=== PATIENT | female | born 1965 | race American Indian/Alaskan Native ===

== ENCOUNTER 2017-09-13 09:16 | Outpatient (CLI) | payer BC ==
--- NOTE | 2017-09-13 10:33 | Mammography Report ---
BILATERAL MAMMOGRAM with CAD: HISTORY: Cancer screening. Comparison study is dated September 13, 2016. FINDINGS: The breast tissue is heterogeneously dense, which could obscure detection of small masses (approximately 50%-75% glandular). No mass, distortion, suspicious calcification, or skin change is seen. IMPRESSION: Negative mammogram. There is no mammographic evidence of malignancy. RECOMMENDATION: Follow-up per ACS guidelines. BI-RADS CATEGORY: 1 = Negative ACR BI-RADS MAMMOGRAPHIC CODES: 0 = Needs additional imaging evaluation; 1 = Negative; 2 = Benign; 3 = Probably benign; 4 = Suspicious; 5 = Malignant; 6 = Known biopsy-proven malignancy COMMENT: 1. Dense breast tissue, i.e., adenosis, fibrocystic changes, etc., may obscure an underlying neoplasm. 2. Approximately 10% of cancers are not detected with mammography. 3. A negative mammography report should not delay biopsy if a clinically suspicious mass is present. COMMENT: Patient follow-up letters are generated in [employer].
== END 2017-09-13 09:17 | disposition home or self-care (01) ==
LOC: SPVWC 09:16
PROVIDERS: ATTEND Family Medicine
DX: Z12.31 Encounter for screening mammogram for malignant neoplasm of breast (principal)
CPT/HCPCS: 77067; G0202

== ENCOUNTER 2020-03-05 07:41 | Outpatient (CLI) | payer BC ==
[2020-03-05 08:28] LABS: Blood Urea Nitrogen 13 mg/dL (7-17)
--- NOTE | 2020-03-05 10:46 | Cat Scan Report ---
CT ABDOMEN AND PELVIS WITH CONTRAST HISTORY: Abdominal pain COMPARISON: None. TECHNIQUE: Axial CT images were obtained through the abdomen and pelvis after 100 cc of Omnipaque 300 intravenously. Sagittal and coronal reformatted images. All CT scans at this location are performed using CT dose reduction for ALARA by means of automated exposure control. FINDINGS: CT ABDOMEN: Lung Bases: Clear. Liver: No significant abnormality. Biliary: No significant abnormality. Spleen: No significant abnormality. Unenlarged. Pancreas: No significant abnormality. Adrenals: No significant abnormality. Kidneys: No significant abnormality. Lymphatics: No lymphadenopathy. Vasculature: No significant abnormality. Bowel/Peritoneum: No significant abnormality. No free air. No free fluid. Normal appendix. CT PELVIS: : There are multiple small uterine fibroids. The adnexa, bladder and distal ureters are unremarkabl e. Osseous Structures: No significant abnormality. Additional Findings: Small umbilical hernia containing fat. IMPRESSION: Mild uterine fibroid disease. Small umbilical hernia containing fat. No acute process is identified in the abdomen or pelvis. Signer Name: Kentrell Robison Jr, MD Signed: 03/05/2020 10:41 AM Workstation Name: [id number]
--- NOTE | 2020-03-05 11:22 | Magnetic Resonance Report ---
MRI RIGHT FEMUR WITHOUT CONTRAST INDICATION / CLINICAL INFORMATION: MAIN. Right hip pain and swelling COMPARISON: Right hip radiograph from 04/02/2012 TECHNIQUE: Multiplanar, multisequence MR images were obtained. FINDINGS: BONES: No significant bone marrow edema. No fracture. No osseous lesion. MUSCLES: No significant abnormality. SUBCUTANEOUS SOFT TISSUES: Superficial varicose veins posteriorly in the distal thigh. VISUALIZED JOINTS: Small bilateral knee joint effusions. ADDITIONAL FINDINGS: Cutaneous marker over the distal lateral thigh is noted. No lesion is identified in this region. IMPRESSION: 1. No significant abnormality in the indicated area of interest. 2. Superficial venous varices posteriorly in the distal thigh. Report dictated by: Isaak Tirado MD Report dictated on: 03/05/2020 9:30 AM I have reviewed the images, agree with this report, and edited this report as needed. Signer Name: Sami Osuna MD FACR Signed: 03/05/2020 11:17 AM Workstation Name: [id number]
== END 2020-03-05 07:42 | disposition home or self-care (01) ==
LOC: MRI 07:41
PROVIDERS: ATTEND Family Medicine
DX: D25.9 Leiomyoma of uterus, unspecified (principal); K42.9 Umbilical hernia without obstruction or gangrene; M25.462 Effusion, left knee; M25.461 Effusion, right knee
CPT/HCPCS: 36415; 73718; 74177; 82565; 84520; Q9967

== ENCOUNTER 2020-09-24 10:30 | Outpatient (CLI) | payer BC ==
--- NOTE | 2020-09-24 14:01 | Mammography Report ---
DIGITAL SCREENING MAMMOGRAM WITH CAD, 09/24/2020 CLINICAL INFORMATION / INDICATION: Routine screening mammography. TECHNIQUE: Digital bilateral 2D mammography was obtained in the craniocaudal and mediolateral obliqu e projections. This examination was interpreted with the benefit of Computer-Aided Detection analysis . COMPARISON: 09/13/2016 FINDINGS: Breast Density: There are scattered areas of fibroglandular density. No dominant mass, suspicious calcifications, or architectural distortion in either breast. No interval change. IMPRESSION: No mammographic evidence of malignancy. Follow up recommendation: Routine yearly BI-RADS Category 1: Negative. A "normal" or negative report should not discourage follow up or biopsy of a clinically significant f inding. A written summary of these findings will be mailed to the patient. The patient will be entered into a mammography reporting system which will generate a reminder letter for the patient's next appointmen t at the appropriate interval. The [employer] recommends yearly mammograms starting at age 40 and continuing as l laina as a woman is in good health. Breast MRI is recommended for women with an approximate 20-25% or greater lifetime risk of breast cancer, including women with a strong family history of breast or ova marga cancer or who have been treated for Hodgkin's disease. Signer Name: Soraida James MD Signed: 09/24/2020 1:57 PM Workstation Name: [email or web address]
== END 2020-09-24 10:31 | disposition home or self-care (01) ==
LOC: SPVWC 10:30
PROVIDERS: ATTEND Family Medicine
DX: Z12.31 Encounter for screening mammogram for malignant neoplasm of breast (principal)
CPT/HCPCS: 77067

== ENCOUNTER 2021-05-06 09:04 | Outpatient (CLI) | payer BC ==
--- NOTE | 2021-05-06 09:46 | Mammography Report ---
DIGITAL DIAGNOSTIC MAMMOGRAM WITH CAD , 05/06/2021 CLINICAL INFORMATION / INDICATION: The patient reports generalized bilateral breast pain for 4 months . TECHNIQUE: Digital bilateral mammographic imaging was performed. This examination was interpreted with the benefit of Computer-aided Detection analysis. COMPARISON: 09/24/2020, 09/13/2017 FINDINGS: Breast Density: There are scattered areas of fibroglandular density. No dominant mass, suspicious calcifications or architectural distortion in either breast. IMPRESSION: No mammographic evidence of malignancy. No focal abnormality is seen to account for the p atient's bilateral breast pain. Therefore, clinical correlation is recommended. Follow up recommendation: Routine yearly BI-RADS Category 1: Negative. A "normal" or negative report should not discourage follow up or biopsy of a clinically significant f inding. A written summary of these findings will be mailed to the patient. The patient will be entered into a mammography reporting system which will generate a reminder letter for the patient's next appointmen t at the appropriate interval. According to the [employer], yearly mammograms are recommended starting at age 40 and continuing as long as a woman is in good health. Breast MRI is recommended for women with an [place] roximately 20-25% or greater lifetime risk of breast cancer, including women with a strong family his tory of breast or ovarian cancer and women who have been treated for Hodgkin's disease. Signer Name: Deborah Dunlap MD Signed: 05/06/2021 9:42 AM Workstation Name: [email or web address]
== END 2021-05-06 09:05 | disposition home or self-care (01) ==
LOC: SPVWC 09:04
PROVIDERS: ATTEND Family Medicine
DX: N64.4 Mastodynia (principal); N64.89 Other specified disorders of breast
CPT/HCPCS: 77066

== ENCOUNTER 2021-10-21 13:04 | Outpatient (CLI) | payer BC ==
--- NOTE | 2021-10-21 14:47 | XRay Report ---
LUMBAR SPINE 3 VIEWS INDICATION: Back pain. COMPARISON: No relevant prior imaging study available. FINDINGS: VERTEBRAE: No acute fracture. Normal alignment. DISC SPACES: Mild discogenic degenerative changes are seen at T11-T12 and T12-L1. No other significan t abnormality. FACET JOINTS: No significant abnormality. SOFT TISSUES: No significant abnormality. ADDITIONAL FINDINGS: No additional significant findings. IMPRESSION: Mild thoracolumbar spondylosis. Signer Name: Loy Raza MD Signed: 10/21/2021 2:43 PM Workstation Name: [id number]
== END 2021-10-21 13:05 | disposition home or self-care (01) ==
LOC: XRAY 13:04
PROVIDERS: ATTEND Family Medicine
DX: M47.25 Other spondylosis with radiculopathy, thoracolumbar region (principal)
CPT/HCPCS: 72100

== ENCOUNTER 2022-06-15 09:40 | Outpatient (CLI) | payer BC ==
--- NOTE | 2022-06-17 11:06 | Mammography Report ---
DIGITAL SCREENING MAMMOGRAM WITH CAD, 06/15/2022 CLINICAL INFORMATION / INDICATION: Routine screening mammography. TECHNIQUE: Digital bilateral 2D mammography was obtained in the craniocaudal and mediolateral oblique projections. This examination was interpreted with the benefit of Computer-Aided Detection analysis. COMPARISON: 11/06/2009 through 05/06/2021. FINDINGS: Breast Density: There are scattered areas of fibroglandular density. No dominant mass, suspicious calcifications, or architectural distortion in either breast. There are benign calcifications bilaterally, unchanged. IMPRESSION: No mammographic evidence of malignancy. Follow up recommendation: Routine yearly screening mammogram. BI-RADS Category 2: BENIGN. A "normal" or negative report should not discourage follow up or biopsy of a clinically significant f inding. A written summary of these findings will be mailed to the patient. The patient will be entered into a mammography reporting system which will generate a reminder letter for the patient's next appointmen t at the appropriate interval. The [employer] recommends yearly mammograms starting at age 40 and continuing as l laina as a woman is in good health. Breast MRI is recommended for women with an approximate 20-25% or greater lifetime risk of breast cancer, including women with a strong family history of breast or ova marga cancer or who have been treated for Hodgkin's disease. Signer Name: Real Torres MD Signed: 06/17/2022 11:02 AM Workstation Name: [id number]
== END 2022-06-15 09:41 | disposition home or self-care (01) ==
LOC: SPVWC 09:40
PROVIDERS: ATTEND Family Medicine
DX: Z12.31 Encounter for screening mammogram for malignant neoplasm of breast (principal)
CPT/HCPCS: 77067